=== PATIENT | female | born 1990 | race Caucasian/White ===

== ENCOUNTER → 2016-05-26 | Outpatient (CLI) | payer BC ==
--- NOTE | 2016-05-26 16:31 | Diagnostic Imaging Report ---
OB ultrasound. INDICATION: survey. FINDINGS: heart rate is 146 beats per minute. The fetus is in cephalic position. The cervix appears long and closed. The placenta is anterior with no placenta previa. The lateral ventricles appear normal. The stomach appears unremarkable. The cord insertion and four-chamber cardiac view is not well seen. The spine appears unremarkable. The urinary bladder and two umbilical arteries are demonstrated. There is no hydronephrosis or cystic mass at the level of the kidneys seen. The amniotic fluid index is 15.2 cm. The growth parameters are all around 27 weeks and 5 days, concordant with the BRETT provided by the referring physician office with current gestational age based on the provided BRETT of 27 weeks and 5 days as well. IMPRESSION: Short-term follow-up is recommended to reevaluate four-chamber view and cord insertion not well seen due to position. Dictated by: Dictated on workstation # [id number]
== END ==
LOC: RAD 09:25
PROVIDERS: ATTEND Obstetrics & Gynecology
DX: Z34.02 Encounter for supervision of normal first pregnancy, second trimester (principal)
CPT/HCPCS: 76805

== ENCOUNTER → 2016-06-08 | Outpatient (CLI) | payer BC ==
--- NOTE | 2016-06-08 13:09 | Diagnostic Imaging Report ---
EXAMINATION: OB ultrasound. INDICATION: Followup four-chamber view and cord insertion. FINDINGS: The four-chamber view is better seen at this time with no significant abnormality. The cord insertion is not evaluated. The heart rate is 134 BPM. IMPRESSION: The four-chamber view appears normal. The cord insertion is still not seen. Dictated by: Dictated on workstation # [id number]
== END ==
LOC: RAD 09:05
PROVIDERS: ATTEND Obstetrics & Gynecology
DX: Z34.03 Encounter for supervision of normal first pregnancy, third trimester (principal)
CPT/HCPCS: 76816

== ENCOUNTER 2016-08-24 19:12 | Inpatient (IN) | payer BC ==
[~2016-08-24] VITALS: Ht 163.8 cm; Wt 104.6 kg
[2016-08-24 19:21] VITALS: BP 122/76
[2016-08-24] MEDS ORDERED: LACTATED RINGERS 1,000 ML IV ONE (19:36)
[2016-08-24] MEDS ORDERED: MISOPROSTOL 100 MCG (CYTOTEC) TAB PO NR (19:45)
[2016-08-24] MEDS ORDERED: MINERAL OIL CONCENTRATE 99.9% 15 ML UDC TOP PRN (19:45)
[2016-08-24 20:09] LABS: BASOPHILS % (AUTO) 0 % (0-10); EOSINOPHILS # (AUTO) 0.1 10^3/uL (0.0-0.3); EOSINOPHILS % (AUTO) 1 % (0-10); LYMPHOCYTES % (AUTO) 22 % (12-44); MEAN CORPUSCULAR HEMOGLOBIN 29 PG (25-34); MEAN CORPUSCULAR HGB CONC 34 G/DL (32-36); MEAN CORPUSCULAR VOLUME 85 FL (80-99); MEAN PLATELET VOLUME 11.5 FL (7.4-10.4); MONOCYTES # (AUTO) 0.8 X 10^3 (0.0-1.0); MONOCYTES % (AUTO) 9 % (0-12); NEUTROPHILS # (AUTO) 6.3 X 10^3 (1.8-7.8); NEUTROPHILS % (AUTO) 68 % (42-75); PLATELET COUNT 204 10^3/uL (130-400); RED BLOOD COUNT 4.02 10^6/uL (4.35-5.85); RED CELL DISTRIBUTION WIDTH 14.2 % (10.0-14.5); WHITE BLOOD COUNT 9.3 10^3/uL (4.3-11.0)
[2016-08-24] MEDS ORDERED: PREN-37 PO (20:40)
[2016-08-24] MEDS: D5 LR IV SOLUTION 1,000 ML IV SCH (20:55)
[2016-08-24 21:59] LABS: BILIRUBIN,URINE NEGATIVE (NEGATIVE); KETONES,URINE 2+ (NEGATIVE); LEUKOCYTE ESTERASE ,URINE NEGATIVE (NEGATIVE); NITRITE,URINE NEGATIVE (NEGATIVE); PH,URINE 6.5 (5-9); PROTEIN,URINE NEGATIVE (NEGATIVE); UROBILINOGEN,URINE NORMAL (NORMAL)
[2016-08-24] MEDS ORDERED: CATHETER FLUSH 10 ML SYR IV SCH (22:00)
[2016-08-24 22:08] LABS: SQUAMOUS EPITHELIAL CELL,UR 0-2 /HPF; WBC,URINE 0-2 /HPF
[2016-08-24] MEDS ORDERED: MISOPROSTOL 100 MCG (CYTOTEC) TAB PO SCH (23:45)
[2016-08-25] VITALS (20 sets, daily range): BP systolic 118–188; BP diastolic 62–114
[2016-08-25] MEDS ORDERED: HYDROmorphone (DILAUDID) 2 MG/ML VIAL IVP ONE ×2 (02:15→06:15)
[2016-08-25] MEDS: D5 LR IV SOLUTION 1,000 ML IV SCH ×2 (04:48→12:11)
[2016-08-25] MEDS ORDERED: ONDANSETRON 4 MG/2 ML (SDV) Z0FRAN IVP PRN (06:15)
[2016-08-25] MEDS ORDERED: SUFENTA 0.6MCG/ML BUPIVA 0.125 100 ML ONE (08:05)
--- NOTE | 2016-08-25 08:19 | History & Physical-OB ---
OB - Chief Complaint & HPI Date/Time Date of Admission: Date of Admission: Aug 24, 2016 at 7:12 pm Time Seen by Provider: 09:00 Chief Complaint/History OB-Reason for Admission/Chief: Induction of Labor Hx : 1 Hx Para: 0 Expected Date of Delivery: Aug 20, 2016 Gestational Age in Weeks: 40 Indication for induction: post dates Admission Nurse Assessment Rev: Yes History of Labs A neg Antibody neg RI RPR NR HBsAg NR HIV NR GC neg GBS neg Allergies and Home Medications Allergies Coded Allergies: No Known Drug Allergies (Unverified , 08/24/16) Home Medications Vit/Iron Fumarate/FA 1 Each Tablet, 1 EACH PO DAILY, (Reported) OB - History Hx of Present Care: Yes Ultrasounds: Normal mid trimester US Obstetrical Complications: None Medical Complications: None Delivery History Adverse Rxn to Tranfusion: No Patient Past Medical History n/a Social History/Family History HIV/AIDS: No Recent Infectious Disease Expo: No Sexually Transmitted Disease: No Alcohol Use: Denies Use Recreational Drug Use: No Immunizations Hepatitis A: No Hepatitis B: No OB - Admission Exam Physical Exam Date Seen by Provider: Aug 24, 2016 Time Seen by Provider: 09:00 Vitals: Vital Signs 08/25/16 03:59 Temp 97.4 Pulse 83 Resp 18 B/P (MAP) 123/70 O2 Delivery Room Air HEENT: NCAT Heart: Rhythm Normal Lungs: Clear Abdomen: Gravid Extremities: Normal Reflexes: Normal Cervical Dilatation: 2cm Effacement: 75% Station: -1 Membranes: Intact Heart Rate: 130's Accelerations: Accelerations Present Decelerations: No Decelerations Short Term Variability: Present Fci Variability: Average (6-25) Contractions on Admission: >10 Minutes Apart Intensity: Mild Collado Scoring Tool (Modified) Dilation (cm): 1-2cm (1) Effacement (%): 51-79% (2) Descent/Station: -1,0 (2) Cervix Consistency: Soft (2) Cervix Position: Anterior (2) Subtract 1 point for: Nulliparity (-1) Collado Score: 8 Labs Laboratory Tests Test 08/24/16 19:05 08/24/16 19:50 Range/Units Urine Color YELLOW Urine Clarity CLEAR Urine pH 6.5 5-9 Urine Specific [place] 1.010 L 1.016-1.022 Urine Protein NEGATIVE NEGATIVE Urine Glucose (UA) NEGATIVE NEGATIVE Urine Ketones 2+ H NEGATIVE Urine Nitrite NEGATIVE NEGATIVE Urine Bilirubin NEGATIVE NEGATIVE Urine Urobilinogen NORMAL NORMAL MG/DL Urine Leukocyte Esterase NEGATIVE NEGATIVE Urine RBC (Auto) 1+ H NEGATIVE Urine RBC RARE /HPF Urine WBC 0-2 /HPF Urine Squamous Epithelial Cells 0-2 /HPF Urine Crystals NONE /LPF Urine Bacteria MODERATE H /HPF Urine Casts NONE /LPF Urine Mucus NEGATIVE /LPF Urine Culture Indicated NO White Blood Count 9.3 4.3-11.0 10^3/uL Red Blood Count 4.02 L 4.35-5.85 10^6/uL Hemoglobin 11.5 11.5-16.0 G/DL Hematocrit 34 L 35-52 % Mean Corpuscular Volume 85 80-99 FL Mean Corpuscular Hemoglobin 29 25-34 PG Mean Corpuscular Hemoglobin Concent 34 32-36 G/DL Red Cell Distribution Width 14.2 10.0-14.5 % Platelet Count 204 130-400 10^3/uL Mean Platelet Volume 11.5 H 7.4-10.4 FL Neutrophils (%) (Auto) 68 42-75 % Lymphocytes (%) (Auto) 22 12-44 % Monocytes (%) (Auto) 9 0-12 % Eosinophils (%) (Auto) 1 0-10 % Basophils (%) (Auto) 0 0-10 % Neutrophils # (Auto) 6.3 1.8-7.8 X 10^3 Lymphocytes # (Auto) 2.0 1.0-4.0 X 10^3 Monocytes # (Auto) 0.8 0.0-1.0 X 10^3 Eosinophils # (Auto) 0.1 0.0-0.3 10^3/uL Basophils # (Auto) 0.0 0.0-0.1 10^3/uL OB - Assessment/Plan/Diagnosis Assessment Assessment: induction of labor Plan Plan: Induction Induction Method: per Misoprostol Protocol Discharge Diagnosis Diagnosis: 25 yo @ 40.5 weeks Postdates GBS neg LUZ MARINACONSUELO Lily DO Aug 25, 2016 8:19 am
[2016-08-25] MEDS ORDERED: OXYTOCIN/NORMAL SALINE 500 ML IV SCH ×2 (08:25→13:21)
[2016-08-25] MEDS ORDERED: BUPIVACAINE 0.25% 30 ML (SENSORCAINE) VIAL ONE (08:47)
[2016-08-25] MEDS ORDERED: fentaNYL INJECTION 100 MCG/2 ML AMP ONE (08:47)
[2016-08-25] MEDS: OXYTOCIN/NORMAL SALINE 500 ML IV SCH ×2 (09:21→13:44)
[2016-08-25] MEDS ORDERED: LACTATED RINGERS 1,000 ML IV ONE (09:52)
[2016-08-25] MEDS ORDERED: NALOXONE 0.4 MG/ML 1 ML (NARCAN) VIAL IV PRN (10:00)
[2016-08-25] MEDS ORDERED: CATHETER FLUSH 10 ML SYR IV PRN (10:00)
[2016-08-25] MEDS ORDERED: diphenhydrAMINE 50 MG/ML INJ (BENADRYL) IV PRN (10:00)
[2016-08-25] MEDS ORDERED: ONDANSETRON 4 MG/2 ML (SDV) Z0FRAN IV PRN (10:00)
[2016-08-25] MEDS ORDERED: EPIDURAL (SUFENTA 0.6MCG/ML BUPIVA 0.125%) 100 ML BAG EPI SCH (10:00)
[2016-08-25] MEDS ORDERED: LIDOCAINE/EPI 1%-1:200,000 (XYLOCAINE) 30 ML VIAL ONE (12:25)
--- NOTE | 2016-08-25 13:27 | OB Labor & Delivery Record ---
L&D History Date of Service Date of Service: Aug 25, 2016 History Expected Date of Delivery: Aug 20, 2016 Gestational Age in Weeks: 40 Hx : 1 Hx Para: 0 Complications Events: Routine care Operative Indications (Cesarea: N/A-Vaginal Delivery Intrapartal Events: None L&D Stage1 Stage One Onset of Labor - Date: Aug 25, 2016 Monitors and Tracing Monitor Mode: External Heart Rate: 115 Monitor Accelerations: Uniform Monitor Decelerations: Prolonged Station: -2 Fci Variability: Average (6-10) Short Term Variability: Present Presentation: Vertex Vital Signs VS - Last 72 Hours, by Label 08/24/16 08/25/16 08/25/16 19:21 00:05 03:59 Temp 99.8 96.7 97.4 Pulse 89 78 83 Resp 18 18 18 B/P (MAP) 122/76 118/69 123/70 O2 Delivery Room Air Room Air Room Air Rupture of Membranes Amniotic Membrane Rupture Time: 0040 Amniotic Fluid Membrane Tests: Nitrazine Positive Induction/Anesthesia Epidural Cath Placement - Time: 09:30 Progress/Notes Patient had a couple of prolonged and late decelerations after epidural placement, which resolved with [id number]. L&D Stage2 Stage Two Stage II Date: Aug 25, 2016 Monitors and Tracing Monitor Mode: External Heart Rate: 115 Monitor Accelerations: None Monitor Decelerations: Variable Network Cabler Variability: Average (6-10) Short Term Variability: Present Position: Right Occiput Anterior Presentation: Vertex Cord Descript/Complications Cord Vessel Description: 3 Vessels Complications nuchal cord x 1 Delivery Type Infant Delivery Method: Spontaneous Vaginal Anterior Shoulder: Right Episiotomy/Perineal Laceration Laceraction(s)/Extensions: Yes Episiotomy Description: Midline Degree (describe repair) midline episiotomy repaired in normal fashion using 3-0 and 2-0 vicryl suture Condition of Delivery 1 minute Comment: 8 5 minute Comment: 9 Notes Live male weight 6lbs 9 oz. Condition of Condition of Infant: Living Exam: No Observed Abnormalities Resuscitation Resuscitation: N/A - Spontaneous Resp L&D Stage3 Stage Three Stage III Date: Aug 25, 2016 Pictocin Pitocin Administration Comment: 2 30 mu bags wide open at delivery of placenta Placenta Delivery Placenta Delivery: Spontaneous Delivery Summary Summary blood loss >1000ml: No Vaginal blood loss >500ml: No 400 Attending at delivery: Consuelo Raza DO Condition of Delivery Post Hemorrhage: No Condition of Mother stable Condition of (s) stable CONSUELO RAZA DO Aug 25, 2016 1:26 pm
[2016-08-25] MEDS ORDERED: TETANUS,DIPTH,PERTUSS P/F (BOOSTRIX) 0.5 ML VIAL IM ONE (13:30)
[2016-08-25] MEDS ORDERED: WITCH HAZEL(TUCKS) 40 EA JAR TOP PRN (13:30)
[2016-08-25] MEDS ORDERED: APAP 300 MG/CODEINE 30 MG (TYLENOL #3) TAB PO PRN (13:30)
[2016-08-25] MEDS ORDERED: MEASLES,MUMPS,RUBELLA 1 EA INJ SQ ONE (13:30)
[2016-08-25] MEDS ORDERED: BENZOCAINE/MENTHOL (DERMOPLAST) 56 ML CAN TP PRN (13:30)
[2016-08-25] MEDS: IBUPROFEN 600 MG (MOTRIN) TAB PO SCH ×2 (14:59→21:50)
[2016-08-25] MEDS: DIBUCAINE (NUPERCAINAL) 1% OINT 30 GM TOP PRN (14:59)
[2016-08-25] MEDS: DOCUSATE SODIUM 100 MG (COLACE) CAP PO SCH (21:50)
[2016-08-26 01:15] VITALS: BP 115/77
[2016-08-26 05:09] LABS: BASOPHILS % (AUTO) 0 % (0-10); EOSINOPHILS # (AUTO) 0.1 10^3/uL (0.0-0.3); EOSINOPHILS % (AUTO) 1 % (0-10); LYMPHOCYTES # (AUTO) 2.1 X 10^3 (1.0-4.0); LYMPHOCYTES % (AUTO) 23 % (12-44); MEAN CORPUSCULAR HEMOGLOBIN 29 PG (25-34); MEAN CORPUSCULAR HGB CONC 33 G/DL (32-36); MEAN CORPUSCULAR VOLUME 87 FL (80-99); MEAN PLATELET VOLUME 10.7 FL (7.4-10.4); MONOCYTES # (AUTO) 0.6 X 10^3 (0.0-1.0); MONOCYTES % (AUTO) 7 % (0-12); NEUTROPHILS # (AUTO) 6.4 X 10^3 (1.8-7.8); NEUTROPHILS % (AUTO) 70 % (42-75); PLATELET COUNT 142 10^3/uL (130-400); RED BLOOD COUNT 3.33 10^6/uL (4.35-5.85); RED CELL DISTRIBUTION WIDTH 14.3 % (10.0-14.5); WHITE BLOOD COUNT 9.2 10^3/uL (4.3-11.0)
[2016-08-26] MEDS: IBUPROFEN 600 MG (MOTRIN) TAB PO SCH ×3 (05:10→18:09)
[2016-08-26 05:13] VITALS: BP 125/76
--- NOTE | 2016-08-26 08:05 | Postpartum Progress Note ---
Note Note Day # 1 Subjective: Patient is without complaints. Ambulating, voiding. Tolerating a regular diet without nausea or vomiting. Normal lochia. Pain is well controlled with oral pain medications. Breast feeding with some difficulty, pumping as well. Objective: VS - Last 72 Hours, by Label 08/24/16 08/25/16 08/25/16 08/25/16 19:21 00:05 03:59 08:30 Temp 99.8 96.7 97.4 97.3 Pulse 89 78 83 Resp 18 18 18 B/P (MAP) 122/76 118/69 123/70 O2 Delivery Room Air Room Air Room Air 08/25/16 08/25/16 08/25/16 08/25/16 09:00 09:30 10:00 10:30 Pulse 73 87 75 75 Resp 18 18 18 18 B/P (MAP) 129/92 120/68 123/69 123/69 O2 Delivery Room Air Non Rebreather Non Rebreather Non Rebreather O2 Flow Rate 15.00 15.00 15.00 08/25/16 08/25/16 08/25/16 08/25/16 11:00 11:30 12:00 12:15 Temp 98.3 Pulse 85 82 105 94 Resp 18 18 20 20 B/P (MAP) 144/79 152/89 168/100 134/91 O2 Delivery Non Rebreather Non Rebreather Room Air Room Air O2 Flow Rate 15.00 15.00 08/25/16 08/25/16 08/25/16 08/25/16 12:30 12:45 13:00 13:30 Temp 98.8 Pulse 112 139 107 106 Resp 20 20 20 18 B/P (MAP) 134/91 188/114 140/62 137/75 O2 Delivery Non Rebreather Non Rebreather Non Rebreather Non Rebreather O2 Flow Rate 15.00 15.00 15.00 15.00 08/25/16 08/25/16 08/25/16 08/25/16 13:30 13:46 14:00 14:15 Pulse 106 101 100 93 Resp 18 18 18 18 B/P (MAP) 137/75 146/70 136/71 138/76 O2 Delivery Room Air Room Air Room Air Room Air 08/25/16 08/25/16 08/25/16 08/26/16 14:46 15:01 21:50 01:15 Temp 97.7 98.6 Pulse 106 87 82 85 Resp 18 18 18 18 B/P (MAP) 155/80 147/67 143/77 115/77 Pulse Ox 99 98 O2 Delivery Room Air Room Air Room Air Room Air 08/26/16 05:13 Temp 97.6 Pulse 89 Resp 18 B/P (MAP) 125/76 Pulse Ox 98 O2 Delivery Room Air Physical Exam: General - Alert and oriented, no apparent distress Abdomen - Soft, appropriately tender to palpation, non-distended, fundus firm at umbilicus Extremities - 1+ pitting edema bilat LE, negative Luigi's bilaterally Laboratory Tests Test 08/26/16 04:59 Range/Units White Blood Count 9.2 4.3-11.0 10^3/uL Red Blood Count 3.33 L 4.35-5.85 10^6/uL Hemoglobin 9.5 L 11.5-16.0 G/DL Hematocrit 29 L 35-52 % Mean Corpuscular Volume 87 80-99 FL Mean Corpuscular Hemoglobin 29 25-34 PG Mean Corpuscular Hemoglobin Concent 33 32-36 G/DL Red Cell Distribution Width 14.3 10.0-14.5 % Platelet Count 142 130-400 10^3/uL Mean Platelet Volume 10.7 H 7.4-10.4 FL Neutrophils (%) (Auto) 70 42-75 % Lymphocytes (%) (Auto) 23 12-44 % Monocytes (%) (Auto) 7 0-12 % Eosinophils (%) (Auto) 1 0-10 % Basophils (%) (Auto) 0 0-10 % Neutrophils # (Auto) 6.4 1.8-7.8 X 10^3 Lymphocytes # (Auto) 2.1 1.0-4.0 X 10^3 Monocytes # (Auto) 0.6 0.0-1.0 X 10^3 Eosinophils # (Auto) 0.1 0.0-0.3 10^3/uL Basophils # (Auto) 0.0 0.0-0.1 10^3/uL Assessment: 25 y/o post- day # 1, status post spontaneous vaginal delivery. Recovering well, hemodynamically stable Acute blood loss anemia Hgb 9.5 Mild thrombocytopenia (142K) Plan: Routine care. BPs elevated around time of delivery, no si/sx pre-eclampsia, normalized since - continue to observe. Encourage breast feeding. Encourage ambulation. Ferrous sulfate supplementation. Plan for discharge tomorrow. Vitals - Labs Vital Signs - I&O Vital Signs Date Time Temp Pulse Resp B/P (MAP) Pulse Ox O2 Delivery O2 Flow Rate FiO2 08/26/16 05:13 97.6 89 18 125/76 98 Room Air 08/26/16 01:15 98.6 85 18 115/77 98 Room Air 08/25/16 21:50 97.7 82 18 143/77 99 Room Air 08/25/16 15:01 87 18 147/67 Room Air 08/25/16 14:46 106 18 155/80 Room Air 08/25/16 14:15 93 18 138/76 Room Air 08/25/16 14:00 100 18 136/71 Room Air 08/25/16 13:46 101 18 146/70 Room Air 08/25/16 13:30 106 18 137/75 Room Air 08/25/16 13:30 106 18 137/75 Non Rebreather 15.00 08/25/16 13:00 107 20 140/62 Non Rebreather 15.00 08/25/16 12:45 139 20 188/114 Non Rebreather 15.00 08/25/16 12:30 98.8 112 20 134/91 Non Rebreather 15.00 08/25/16 12:15 94 20 134/91 Room Air 08/25/16 12:00 105 20 168/100 Room Air 08/25/16 11:30 82 18 152/89 Non Rebreather 15.00 08/25/16 11:00 98.3 85 18 144/79 Non Rebreather 15.00 08/25/16 10:30 75 18 123/69 Non Rebreather 15.00 08/25/16 10:00 75 18 123/69 Non Rebreather 15.00 08/25/16 09:30 87 18 120/68 Non Rebreather 15.00 08/25/16 09:00 73 18 129/92 Room Air 08/25/16 08:30 97.3 I & O 08/26/16 07:00 Intake Total 3175 ml Balance 3175 ml Labs Laboratory Tests 08/26/16 04:59: White Blood Count 9.2, Red Blood Count 3.33L, Hemoglobin 9.5L, Hematocrit 29L, Mean Corpuscular Volume 87, Mean Corpuscular Hemoglobin 29, Mean Corpuscular Hemoglobin Concent 33, Red Cell Distribution Width 14.3, Platelet Count 142, Mean Platelet Volume 10.7H, Neutrophils (%) (Auto) 70, Lymphocytes (%) (Auto) 23 , Monocytes (%) (Auto) 7, Eosinophils (%) (Auto) 1, Basophils (%) (Auto) 0, Neutrophils # (Auto) 6.4, Lymphocytes # (Auto) 2.1, Monocytes # (Auto) 0.6, Eosinophils # (Auto) 0.1, Basophils # (Auto) 0.0 KEON MORA MD Aug 26, 2016 08:05
--- NOTE | 2016-08-26 08:33 | Anesthesia-Regional Post-Op ---
Regional Patient Condition Mental Status: Alert, Oriented x3 Circulation: Same as Pre-Op Headache: Absent Sensation: Full Recovery Motor Block: Absent Post Op Complications Complications None Follow Up Care/Instructions Patient Instructions None needed. Anesthesia/Patient Condition Patient is doing well, no complaints, stable vital signs, no apparent adverse anesthesia problems. No complications reported per nursing. D/C home per [facility] [place] Criteria: GRICELDA John DO Aug 26, 2016 08:33
[2016-08-26] MEDS: PRENATAL VITAMIN 1 EA TAB PO SCH (09:36)
[2016-08-26] MEDS: FERROUS SULF 325 MG (IRON) TAB PO SCH (09:36)
[2016-08-26] MEDS: DOCUSATE SODIUM 100 MG (COLACE) CAP PO SCH ×2 (09:36→21:32)
[2016-08-26 12:30] VITALS: BP 119/74
[2016-08-26 18:11] VITALS: BP 132/78
[2016-08-26] MEDS: DIBUCAINE (NUPERCAINAL) 1% OINT 30 GM TOP PRN (21:32)
[2016-08-26] MEDS: CATHETER FLUSH 10 ML SYR IV SCH (22:30)
[2016-08-27] VITALS: BP 128/83
[2016-08-27] MEDS: IBUPROFEN 600 MG (MOTRIN) TAB PO SCH ×3 (00:08→12:08)
[2016-08-27 06:00] VITALS: BP 136/86
--- NOTE | 2016-08-27 07:19 | Discharge Inst-Women's Service ---
Discharge Inst-Women's Serv Depart Medication/Instructions New, Converted or Re-Newed RX: RX on Chart Consults/Follow Up Additional Follow Up: Yes Activity Activity: Activity as Tolerated Driving Instructions: No Driving for 1 Week NO SMOKING: NO SMOKING Nothing Inside Vagina: No Douching, No [place], No Tampons Diet Discharge Diet: No Restrictions Symptoms to Report to : Bleeding Excessive, Pain Increased, Fever Over 101 Degrees F, Vaginal Bleeding Increase, Questions/Concerns For Any Problems or Questions: Contact Your Physician Skin/Wound Care Bathing Instructions: CONSUELO Bar DO Aug 27, 2016 7:19 am
[2016-08-27] MEDS ORDERED: ACET1TAB43 PO (07:22)
[2016-08-27] MEDS ORDERED: DOCU100C37 PO (07:22)
[2016-08-27] MEDS ORDERED: IBUP-1773 PO (07:22)
[2016-08-27] MEDS ORDERED: FERR-74 PO (07:22)
--- NOTE | 2016-08-27 08:47 | Progress Note-Standard ---
Standard Progress Note Progress Notes/Assess & Plan Date Seen by Provider: Aug 27, 2016 Time Seen by Provider: 07:15 Progress/Assessment & Plan Patient doing well, requesting discharge. Lochia min-light. Vital Sign - Last 24 Hours 08/26/16 08/26/16 08/27/16 08/27/16 12:30 18:11 00:00 06:00 Temp 97.6 98.4 97.6 97.9 Pulse 81 96 76 84 Resp 20 18 18 18 B/P (MAP) 119/74 132/78 128/83 136/86 Pulse Ox 98 99 98 O2 Delivery Room Air Room Air Room Air Room Air Diagnosis: PPD 2 NVD Plan: DC home today PP precautions reviewed. CONSUELO RAZA DO Aug 27, 2016 8:47 am
[2016-08-27 09:00] VITALS: BP 132/76
[2016-08-27] MEDS: FERROUS SULF 325 MG (IRON) TAB PO SCH (09:59)
[2016-08-27] MEDS: PRENATAL VITAMIN 1 EA TAB PO SCH (09:59)
[2016-08-27] MEDS: DOCUSATE SODIUM 100 MG (COLACE) CAP PO SCH (09:59)
[2016-08-27 13:10] VITALS: BP 132/76
== END 2016-08-27 13:10 | disposition home or self-care (01) | DRG 774 ==
LOC: LDRP 19:12
PROVIDERS: ADMIT Obstetrics & Gynecology; ATTEND Obstetrics & Gynecology
PROC: 10E0XZZ Delivery of Products of Conception, External Approach (ICD-10-PCS; principal; 2016-08-25)
PROC: 0W8NXZZ Division of Female Perineum, External Approach (ICD-10-PCS; 2016-08-25)
DX: O48.0 Post-term pregnancy (principal); O76 Abnormality in fetal heart rate and rhythm complicating labor and delivery; O72.3 Postpartum coagulation defects; O99.03 Anemia complicating the puerperium; D62 Acute posthemorrhagic anemia; Z3A.40 40 weeks gestation of pregnancy; Z37.0 Single live birth
CPT/HCPCS: 36415; 81000; 83033; 85025; 86850; 86900; 86901

== ENCOUNTER 2019-08-08 09:05 | Outpatient (RCR) | payer OTHER ==
[~2019-08-08] VITALS: Ht 165.1 cm; Wt 79.5 kg
[~2019-08-08 09:05] MED LIST: ACET1TAB43 PO; CETI10TA21 PO; DOCU100C37 PO; FERR325T18 PO; FLUT9.9S NSEACH; IBUP-1773 PO; PREN-37 PO
== END 2019-08-08 15:47 | disposition home or self-care (01) ==
LOC: PREOP 09:05
PROVIDERS: ATTEND Otolaryngology Otolaryngology/Facial Plastic Surgery
DX: Z01.818 Encounter for other preprocedural examination (principal); Z11.59 Encounter for screening for other viral diseases; J32.9 Chronic sinusitis, unspecified
CPT/HCPCS: 87635

== ENCOUNTER 2019-08-11 06:12 | Day surgery (SDC) | payer OTHER ==
[~2019-08-11] VITALS: Ht 165.1 cm; Wt 80.3 kg
[2019-08-11] VITALS (10 sets, daily range): BP systolic 111–133; BP diastolic 68–89
[2019-08-11] MEDS ORDERED: AMPICILLIN/SULBACTAM INJECTION 1.5 GM in NS (IVPB) 100 ML IV ONE (06:15)
[2019-08-11] MEDS ORDERED: HYDROCORTISONE 100 MG/2 ML (Solu-CORTEF) VIAL IV ONE (06:15)
[2019-08-11] MEDS ORDERED: LACTATED RINGERS 1,000 ML IV PRN (06:15)
[2019-08-11 06:49] LABS: BASOPHILS % (AUTO) 0 % (0-10); EOSINOPHILS # (AUTO) 0.2 10^3/uL (0.0-0.3); EOSINOPHILS % (AUTO) 2 % (0-10); HEMATOCRIT 41 % (35-52); HEMOGLOBIN 13.8 G/DL (11.5-16.0); LYMPHOCYTES # (AUTO) 3.8 X 10^3 (1.0-4.0); LYMPHOCYTES % (AUTO) 41 % (12-44); MEAN CORPUSCULAR HEMOGLOBIN 29 PG (25-34); MEAN CORPUSCULAR HGB CONC 34 G/DL (32-36); MEAN CORPUSCULAR VOLUME 85 FL (80-99); MEAN PLATELET VOLUME 9.8 FL (7.4-10.4); MONOCYTES # (AUTO) 0.9 X 10^3 (0.0-1.0); MONOCYTES % (AUTO) 10 % (0-12); NEUTROPHILS # (AUTO) 4.4 X 10^3 (1.8-7.8); NEUTROPHILS % (AUTO) 47 % (42-75); PLATELET COUNT 264 10^3/uL (130-400); RED CELL DISTRIBUTION WIDTH 13.6 % (10.0-14.5); WHITE BLOOD COUNT 9.3 10^3/uL (4.3-11.0)
[2019-08-11 07:09] LABS: BUN/CREATININE RATIO 20; CALCIUM 8.8 MG/DL (8.5-10.1); CARBON DIOXIDE 22 MMOL/L (21-32); CHLORIDE 108 MMOL/L (98-107); CREATININE SERUM 0.76 MG/DL (0.60-1.30); GFR ESTIMATED > 60; GLUCOSE 92 MG/DL (70-105); POTASSIUM 3.9 MMOL/L (3.6-5.0); SODIUM 139 MMOL/L (135-145)
--- NOTE | 2019-08-11 07:09 | Progress Note-Pre Operative ---
Pre-Operative Progress Note H&P Reviewed The H&P was reviewed, patient examined and no changes noted. Date Seen by Provider: August 11, 2019 Time Seen by Provider: : Date H&P Reviewed: August 11, 2019 Time H&P Reviewed: : Pre-Operative Diagnosis: Bilat Chronic Sinusitis, Bialt Hyper of Inf Turbs CONSUELO ROMERO MD August 11, 2019 07:09
[2019-08-11] MEDS ORDERED: COCAINE HCL 4% 2 ML SYR ONE (07:10)
[2019-08-11] MEDS ORDERED: LIDOCAINE/EPI 1%-1:100,000 (XYLOCAINE) 20ML ONE (07:10)
[2019-08-11] MEDS ORDERED: PHENYLEPHRINE 0.5% NASAL SPR (NEO-SYNEPHRINE) REG ONE (07:10)
[2019-08-11] MEDS ORDERED: proPOfol 200 MG/20 ML (DIPRIVAN) VIAL IV ONE (07:13)
[2019-08-11] MEDS ORDERED: DEXAMETHASONE 10 MG/ML (DECADRON) 1 ML VIAL ONE (07:13)
[2019-08-11] MEDS ORDERED: MIDAZOLAM 2 MG/2 ML (VERSED) VIAL ONE (07:13)
[2019-08-11] MEDS ORDERED: SEVOFLURANE (ULTANE) 15 ML INHAL SOLN ONE (07:13)
[2019-08-11] MEDS ORDERED: ONDANSETRON 4 MG/2 ML (SDV) Z0FRAN ONE ×2 (07:13→09:12)
[2019-08-11] MEDS ORDERED: fentaNYL INJECTION 100 MCG/2 ML AMP ONE (07:13)
[2019-08-11] MEDS ORDERED: LIDOCAINE PF 2% 5 ML (XYLOCAINE) VIAL ONE (07:13)
[2019-08-11] MEDS ORDERED: BSS 15 ML ONE (07:18)
[2019-08-11] MEDS ORDERED: morphine INJ 10 MG/ML 1ML (SYR OR VIAL) ONE (08:33)
--- OUTSIDE RECORDS SUMMARY | 2019-08-11 08:41 | XMS REPORT ---
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 [employer] [facility] [employer] Address [address] [address] Care Team Providers Care Aluminum Siding Installer Name Role Phone FENECH DO, CONSUELO S Unavailable Unavailable FENECH DO, CONSUELO S Unavailable Unavailable UNLISTED, UNLISTED Unavailable Unavailable UNLISTED, UNLISTED Unavailable Unavailable UNLISTED, UNLISTED Unavailable Unavailable BIRGIT, RACHELLE Unavailable Unavailable GENAO, RACHELLE Unavailable Unavailable GENAO, RACHELLE Unavailable Unavailable CAIO, BRAYAN Unavailable Unavailable CAIO, BRAYAN Unavailable Unavailable CAIO, BRAYAN Unavailable Unavailable NICK, CONSUELO Unavailable Unavailable NICK, CONSUELO Unavailable Unavailable NICK, CONSUELO Unavailable Unavailable FENECH DO, CONSUELO S Unavailable Unavailable FENECH DO, CONSUELO S Unavailable Unavailable NICK MARIE, CONSUELO P Unavailable Unavailable MD Hieu GENAO PCP Unavailable Unavailable Unavailable Unavailable Unavailable Unavailable Unavailable Unavailable Unavailable Unavailable Allergies Normalized Allergy Reported Date of Reaction(s) Care Provider Facility Allergy Type classification allergen Allergy Onset DA (3 Unclassified No Known Drug 08-24-2016 - no information CONSUELO RAZA Not Available sources.) Allergies , DO (74823) no information Unclassified NO KNOWN DRUG UNKNOWN [facility] (6 sources.) ALLERGIES [facility] ([id number]) Medications Current Medications Medication Ingredient Drug Dose Dates Status Sig Sig Care Class(es) (Normalized) (Original) Provid er no Cetirizine Histamine-1 Active no Cetirizine no information Receptor information Hcl Active name (1 source.) Antagonist 10 ORAL Daily fluticasone fluticasone Corticoster Active no Fluticas one no propionate oid information Propionate name 0.05 Active 1 mg/actuat NASAL Daily metered dose nasal spray (1 source.) Completed/Discontinued Medications Medication Ingredient Drug Dose Dates Status Sig Sig Care Class(es) (Normalized) (Original) Provid er acetaminoph Acetaminoph Opioid 08-28-19 Complete no Acetamin ophe no en 300 mg / en / Agonist 17 - d information n With nam e codeine Codeine 08-03-19 Codeine phosphate 20 Discontinued 30 mg oral 1-2 ORAL tablet (1 Every 4HRS source.) as needed for Pain-Moderat e 30 August 27, 2016 7:22am August 03, 2019 docusate Docusate no 08-28-19 Complete no Docusate no sodium 100 information 17 - d information Sodium name mg oral 08-03-19 Discontinued capsule (1 20 100 ORAL source.) Twice A Day as needed for Constipation -1ST Line 40 August 27, 2016 7:22August 03, 2019 ferrous ferrous no 08-28-19 Complete no Ferrous no sulfate 325 sulfate information 17 - d information Sulfat e name mg oral 08-03-19 Discontinued tablet (1 20 325 ORAL source.) Daily@0800 60 August 27, 2016 7:August 03, 2019 ibuprofen Ibuprofen Nonsteroida 08-28-19 Complete no Ibuprof en no 600 mg oral l 17 - d information Discontinued name tablet (1 Anti-inflam 08-03-19 600 ORAL source.) matory Drug 20 Every 6 Hours as needed for Cramps 80 August 27, 2016 7:August 03, 2019 no no 08-03-19 Complete no no information Vit/Iron information 20 d information Vit/I alina name (1 source.) Fumarate/Fa Fumarate/Fa Discontinued 1 ORAL Daily August 03, 2019 Problems Active Problems Problem Normalized Date Last Normalized Normalized Provider Fa cility Classification Problem(s) Recorded Problem Problem Sta tus Duration Residual 40 weeks 08-01-2019 - Episodic Active CONSUELO BENJIECH [facility] Via codes; gestation of , DO [place] unclassified Hospital - (1 source.) [facility] ([address]) Other Abnormality in 08-01-2019 - Episodic Active CONSUELO F ENECH [facility] Via complications heart , DO [place] of ; rate and Hospital - puerperium rhythm [facility] affecting complicating (86297) management of labor and mother (4 delivery sources.) Acute Acute 08-01-2019 - Episodic Active CONSUELO FENECH [facility] Via posthemorrhagi posthemorrhagi , DO [place] c anemia (4 c anemia Hospital - sources.) [facility] (7[address]99) Other Anemia 08-01-2019 - Chronic Active CONSUELO FENECH [facility] Via complications complicating , DO [place] of ; the [facility]perium [facility] ([address]) management of mother (4 sources.) Other upper Chronic 08-09-2019 - Chronic Active CONSUELO Otero [facility] Via respiratory sinusitis, , MD Fried infections (2 unspecified Hospital - sources.) Translations: [facility] [ Chronic (24623) sinusitis] Immunizations Encounter for 08-09-2019 - Episodic Active ADRIEN ROMERO [facility] Via and screening screening for , MD [place] for infectious other viral Hospital - disease (1 diseases [facility] source.) (23152) Other Encounter for 08-01-2019 - Episodic Active CONSUELO DUCKWORTH [facility] Via and supervision of , DO Fried delivery normal first Hospital - including , [facility] normal (12 third (67621) sources.) trimester Translations: [ SINGLE LIVE , ENCNTR FOR SUPRVSN OF NORMAL FIRST PREG,] Other upper Hypertrophy of Episodic Active MD RACHELLE booth Via respiratory nasal GENAO [address] [place] disease (1 turbinates (Work Phone: Hospital source.) (230[address]) ) Other skin Ingrowing nail Episodic Active RACHELLE GENAO H ospital disorders (1 District [facility] of source.) [facility] (97881) Other skin Ingrowing nail Episodic Active RACHELLE GENAO H ospital disorders (1 District [facility] of source.) [facility] (94114) Prolonged Post-term 08-01-2019 - Episodic Active CONSUELO BENJIEC H [facility] Via (4 , DO [place] sources.) [facility] (64358) Other 08-01-2019 - Episodic Active CONSUELO FENEC H [facility] Via complications coagulation , DO [place] of ; defects [facility] ([address]) management of mother (4 sources.) Other upper Streptococcal Episodic Active BRAYAN KEARNEY Ho spital respiratory sore throat [facility] of infections (2 [place] sources.) [facility] (03462) Bacterial Streptococcus Episodic Active BRAYAN KEARNEY Hosp ital infection; pneumoniae as District [facility] of unspecified the cause of [place] site (2 diseases [facility] (63591) sources.) classified elsewhere Inflammation; Unspecified Episodic Active RACHELLE GENAO H ospital infection of acute District [facility] of eye (except conjunctivitis [place] that caused by , bilateral [facility] (85063) tuberculosis Translations: or sexually [ ACUTE transmitteddis CONJUNCTIVITIS ease) (4 , UNSPECIFIED sources.) ] Past or Other Problems Problem Normalized Date Last Normalized Normalized Provider Fa cility Classification Problem(s) Recorded Problem Problem Sta tus Duration Residual 40 weeks no information no information CONSUELO RAZA Not Available codes; gestation of , DO (71709) unclassified (3 sources.) Procedures Procedure Normalized Procedure Procedure Result Performer Facility Date 08-25-2016 DELIVERY OF PRODUCTS no information no name [facility] ([address]852) DELIVERY OF PRODUCTS no information no name Not Avail able (92279) OF CONCEPTION, [facility] 08-25-2016 DIVISION OF FEMALE no information no name [facility] PERINEUM, EXTERNAL [facility] (46919) DIVISION OF FEMALE no information no name Not Availab le (26892) PERINEUM, EXTERNAL AP Immunizations Normalized Immunization Date Notes Care Provider Facili ty Immunization NEGATED: Highlighted 08-27-2016 no information MD RACHELLE BRUMFIELD NS [place] Via row has not [phone] (Work Phone: [facility] occurred! ) (55748) tetanus toxoid, reduced diphtheria toxoid, and acellular pertussis vaccine, adsorbed Results Test Name Value Interpretation Reference Range Date Time Fa cility (Normalized) (Normalized) (Medline Reference) laboratory on 2019-08-11 Anion gap 9 mmol/L (NEG) 3 - 11 mmol/L 08-11-2019 PENDING LOCATION [Moles/Vol] 02:35-0400 [facility] (35180) Basophils (Bld) 0.0 10*3/uL (NEG) 0 - 0.3 10*3/uL 08-11-2019 PENDING LOCATION [#/Vol] 02:35-0400 [facility] (70411) Basophils/100 0 % (NEG) 0.5 - 1 % 08-11-2019 PENDING LOCATION WBC (Bld) 02:35-0400 [facility] (27854) Calcium 8.8 mg/dL (NEG) 8.5 - 10.2 mg/dL 08-11-2019 PENDI NG LOCATION [Mass/Vol] 02:35-0400 [facility] (17763) Chloride 108 mmol/L (H) 95 - 106 mmol/L 08-11-2019 PENDI LOCATION [Moles/Vol] 02:35-0400 [facility] (84482) CO2 [Moles/Vol] 22 mmol/L (NEG) 23 - 29 mmol/L 08-11-2019 P ENDING LOCATION 02:35-0400 [facility] (24909) Creatinine 0.76 mg/dL (NEG) 08-11-2019 PENDING LOCATI ON [Mass/Vol] 02:35-0400 [facility] (95137) Creatinine and > (no code) 08-11-2019 PENDING LOC ATION Glomerular 02:35-0400 [facility] (93183) filtration rate.predicted panel - Serum, Plasma or Blood Eosinophils 0.2 10*3/uL (NEG) 0.05 - 0.5 08-11-2019 PENDING LOCATION (Bld) [#/Vol] 10*3/uL 02:35-0400 [facility] (62264) Eosinophils/100 2 % (NEG) 1 - 4 % 08-11-2019 [facility] LOCATION WBC (Bld) 02:35-0400 [facility] (39144) Erythrocyte 13.6 % (NEG) 11.6 - 14.6 % 08-11-2019 [facility] LOCATION distribution 02:35-0400 [facility] (44182) width (RBC) [Ratio] Glucose 92 mg/dL (NEG) 60 - 125 mg/dL 08-11-2019 PENDING LOCATION [Mass/Vol] 02:35-0400 [facility] (42092) Hematocrit (Bld) 41 % (NEG) 36.1 - 50.3 % 08-11-2019 P ENDING LOCATION [Volume 02:35-0400 [facility] (45606) fraction] Hemoglobin (Bld) 13.8 g/dL (NEG) 12.1 - 17.2 g/dL 08-11-2019 PENDING LOCATION [Mass/Vol] 02:35-0400 [facility] (28774) Lymphocytes 3.8 10*3/uL (NEG) 0.9 - 2.9 08-11-2019 PENDING LOCATION (Bld) [#/Vol] 10*3/uL 02:35-0400 [facility] (64784) Lymphocytes/100 41 % (NEG) 20 - 40 % 08-11-2019 [facility] LOCATION WBC (Bld) 02:35-0400 [facility] (71625) MCH (RBC) 29 pg (NEG) 27 - 31 pg 08-11-2019 PENDING LOC ATION [Entitic mass] 02:35-0400 [facility] (29230) MCHC (RBC) 34 g/dL (NEG) 32 - 36 g/dL 08-11-2019 PENDING LOCATION [Mass/Vol] 02:35-0400 [facility] (34946) MCV (RBC) 85 (NEG) 08-11-2019 PENDING LOCATI ON [Entitic vol] 02:35-0400 [facility] (15682) Monocytes (Bld) 0.9 10*3/uL (NEG) 0.3 - 0.9 08-11-2019 PEND ING LOCATION [#/Vol] 10*3/uL 02:35-0400 [facility] (98144) Monocytes/100 10 % (NEG) 2 - 8 % 08-11-2019 PENDING LOCATION WBC (Bld) 02:35-0400 [facility] (66093) Neutrophils 4.4 10*3/uL (NEG) 1.7 - 7 10*3/uL 08-11-2019 [facility] ND[facility] LOCATION (Bld) [#/Vol] 02:35-0400 [facility] (10129) Neutrophils/100 47 % (NEG) 40 - 60 % 08-11-2019 PENDIN G LOCATION WBC (Bld) 02:35-0400 [facility] (25049) Platelet mean 9.8 (NEG) 08-11-2019 PENDING LOCA TION volume (Bld) 02:35-0400 [facility] (04607) [Entitic vol] Platelets (Bld) 264 10*3/uL (NEG) 150 - 450 08-11-2019 PEND ING LOCATION [#/Vol] 10*3/uL 02:35-0400 [facility] (55227) Potassium 3.9 mmol/L (NEG) 3.7 - 5.2 mmol/L 08-11-2019 PEND ING LOCATION [Moles/Vol] 02:35-0400 [facility] (06334) RBC (Bld) 4.83 10*6/uL (NEG) 4.2 - 6.1 08-11-2019 PENDING L OCATION [#/Vol] 10*6/uL 02:35-0400 [facility] (64823) Sodium 139 mmol/L (NEG) 135 - 145 mmol/L 08-11-2019 PEND ING LOCATION [Moles/Vol] 02:35-0400 [facility] (86066) Urea nitrogen 15 mg/dL (NEG) 7 - 20 mg/dL 08-11-2019 PENDI NG LOCATION [Mass/Vol] 02:35-0400 [facility] (09068) Urea 20 mg/mg (no code) 6 - 22 mg/mg 08-11-2019 PENDING L OCATION nitrogen/Creatin 02:35-0400 [facility] (15462) ine [Mass ratio] WBC (Bld) 9.3 10*3/uL (NEG) 3.5 - 10.5 08-11-2019 PENDING L OCATION [#/Vol] 10*3/uL 02:35-0400 [facility] (32698) laboratory on 2019-08-08 Coronavirus Ab Negative (no code) 08-08-2019 PENDING LOC ATION Qn (S) 09:11-0400 [facility] (15967) Vital Signs The data below is from unstructured sourcesNo vital signs result information available. Interventions No Information Plan of Treatment Normalized Care Care Detail Care Activity Date Care Provider F acility Activity Coronavirus Ab Qn no information no information MD RACHELLE LOPEZ [place] Via (S) [phone] (Work Phone: [facility] ) ([phone]) Patient referral no information no information MD RACHELLE MENENDEZ S [place] [facility] [phone] (Work Phone: [facility] ) (94492) Goals Patient Goal Desired Goal no information no information Social History Normalized Code Original Code Date Value Tobacco smoking status Tobacco smoking status no information Never smoked tobacco NHIS NHIS (finding) no information no information 08-03-2019 Rarely Uses no information no information 08-03-2019 No no information no information 08-03-2019 Never a Smoker Sex Assigned At Sex Assigned At no information F emale Functional Status The data below is from unstructured sourcesNo Functional Status information available Mental Status The data below is from unstructured sourcesNo Mental Status Information Available Encounters Encounter Normalized Encounter Encounter Diagnosis Care Provi shelia Organization Date Type 08-08-2019 Discharged Recurring no information (no phone) As [facility]ension [facility] (no phone) 08-08-2019 08-24-2016 Evaluation and no information no name no organ ization name - management of 08-27-2016 inpatient 08-24-2016 Evaluation and no information CONSUELO RAZA DO [facility] Via [place] - management of (no phone) [facility] 08-27-2016 inpatient (no phone) 12-18-2017 Patient encounter no information no name no or ganization name - 12-19-2017 08-11-2019 Patient encounter no information CONSUELO ROMERO MD (no [facility] [place] procedure phone) [facility] (no phone) 08-08-2019 Patient encounter no information CONSUELO ROMERO MD (no [facility] Via [place] - procedure phone) [facility] 08-08-2019 (no phone) 08-03-2019 Patient encounter no information CONSUELO ROMERO MD (no [facility] Via [place] procedure phone) [facility] (no phone) 06-18-2019 Patient encounter no information CONSUELO ROMERO (no [facility] - procedure phone) [facility] (no 06-19-2019 phone) 12-10-2018 Patient encounter no information no name no or ganization name - procedure 12-11-2018 10-21-2018 Patient encounter no information no name no or ganization name - procedure 10-22-2018 07-14-2018 Patient encounter no information no name no or ganization name - procedure 07-15-2018 06-10-2017 Patient encounter no information no name no or ganization name - procedure 06-11-2017 01-04-2017 Patient encounter no information no name no or ganization name - procedure 01-05-2017 08-24-2016 Patient encounter no information no name no or ganization name - procedure 08-27-2016 06-08-2016 Patient encounter no information no name no or ganization name procedure 06-08-2016 Patient encounter no information CONSUELO Marrufo [facility] Via [place] procedure (no phone) [facility] (no phone) 05-26-2016 Patient encounter no information no name no or ganization name procedure 05-26-2016 Patient encounter no information CONSUELO Marrufo [facility] Via [place] procedure (no phone) [facility] (no phone) no information Encounter for other no name (no phone) preprocedural examination Medical Equipment The data below is from unstructured sourcesNo Medical Equipment Information available Payers Normalized Payer Value Private Health Insurance no information [employer] [facility] no information Evaluation note Note Type Note Facility Evaluation No Assessments Information Available A scension note Via [facility] ([id number]) Clinical Note Note Type Note Facility Note NAME: HUONG ZHAO ~MED REC#: [id number] ~ PENDING ~PHYSICIAN: CONSUELO ROMERO MD ~Pre-Ope rative Progress Note ~H P Reviewed ~The H LOCATION P was reviewed, patient examined and no changes noted. ~Date Seen by Provider: [facility] August 11, 2019 ~Time Seen by Provider: 06:30 ~Date H P Reviewed: August 11, 2019 (40578) ~Time H P Reviewed: 06:30 ~Pre-Operativ e Diagnosis: Bilat Chronic Sinusitis, Bialt Hyper of Inf Turbs ~ ~ ~ ~Elizabeth ROMERO MD August 11, 2019 07:09 ~ ~ ~<Created by CONSUELO ROMERO MD> ~<Elec tronically signed by CONSUELO ROMERO MD> 08/11/19 0709 ~ ~ Advance Directives Advance Directive Response Recorded Date/Time Advance Directives No Ma y 2019 10:21am Health Care Power of Crop Quantitative Geneticist No August 03, 2019 10:21am Organ Donor Yes July 10:21am Resuscitation Status Full Code August 03, 2019 10:21am Additional Source Comments This clinical document has been generated using [employer] software that has been certified by the Office of the National Coordinator for Health Information Technology (ONC 15.99.04.3023.Diam.31.00.0.251142) and the National Committee for General Service Technician (NCQA, as an eMeasure certified technology). FOR RECORDS PERTAINING TO PATIENTS WHO ARE OR HAVE BEEN ENROLLED IN A CHEMICAL D EPENDENCY/SUBSTANCE ABUSE PROGRAM, SOME INFORMATION MAY BE OMITTED. This clinica l summary was aggregated from multiple sources. Caution should be exercised in using it in the provision of clinical care. This summary normalizes information from multiple sources, and as a consequence, information in this document may ma terially change the coding, format and clinical context of patient data. In toño tion, data may be omitted in some cases. CLINICAL DECISIONS SHOULD BE BASED ON T HE PRIMARY CLINICAL RECORDS. [employer] provides no warranty or guara ntee of the accuracy or completeness of information in this document.The followi ng information is based on time limited clinical information
--- OUTSIDE RECORDS SUMMARY | 2019-08-11 08:41 | XMS REPORT | Continuity of Care Document ---
Author Organization Unknown Address Unknown Phone Unavailable Allergies Active Description Code Type Severity Reaction Onset Reported/Identified Relationship to Patient Clinical Status Yes NO KNOWN DRUG ALLERGIES UNKNOWN NO KNOWN DRUG ALLERG Yes NO KNOWN DRUG ALLERGIES UNKNOWN UNKNOWN Yes No Known Drug Allergies [id number] Drug Allergy Unknown N/A 08/24/2016 Medications There is no data. Problems Date Dx Coded Attending Type Code Diagnosis Diagnosed By 05/26/2016 TITO RAZA DO, Ot Z34.02 ENCNTR FOR SUPRVSN OF NORMAL FIRST PREG, 05/27/2016 TITO RAZA DO, Ot Z34.02 ENCNTR FOR SUPRVSN OF NORMAL FIRST PREG, 05/27/2016 TITO RAZA DO Ot Z34.02 ENCNTR FOR SUPRVSN OF NORMAL FIRST PREG, 06/03/2016 TITO RAZA DO Ot Z34.02 ENCNTR FOR SUPRVSN OF NORMAL FIRST PREG, 06/08/2016 TITO RAZA DO Ot Z34.03 ENCNTR FOR SUPRVSN OF NORMAL FIRST PREG, 06/19/2016 TITO RAZA DO Ot Z34.03 ENCNTR FOR SUPRVSN OF NORMAL FIRST PREG, 08/27/2016 TITO RAZA DO Ot D6 2 ACUTE POSTHEMORRHAGIC ANEMIA 08/27/2016 TITO RAZA DO Ot O48.0 POST-TERM 08/27/2016 TITO RAZA DO Ot O72.3 COAGULATION DEFECTS 08/27/2016 TITO RAZA DO Ot O7 6 ABNLT IN HEART RATE AND RHYTHM COM 08/27/2016 TITO RAZA DO Ot O99.03 ANEMIA COMPLICATING THE PUERPERIUM 08/27/2016 TITO RAZA DO Ot Z37.0 SINGLE LIVE 08/27/2016 TITO RAZA DO Ot Z3A.40 40 WEEKS GESTATION OF 06/10/2017 A 703.0 INGR OWING NAIL 06/10/2017 A L60.0 INGR OWING NAIL 07/14/2018 W 372.00 ACU TE CONJUNCTIVITIS, UNSPECIFIED 07/14/2018 W H10.33 UNS PECIFIED ACUTE CONJUNCTIVITIS, BILATERAL 10/21/2018 W 034.0 STRE PTOCOCCAL SORE THROAT 10/21/2018 W B95.3 STRE PTOCOCCUS PNEUMONIAE THE CAUSE OF DISEASES CLASSIFIED ELSEWHERE 08/01/2019 TITO RAZA DO, Ot Z34.02 ENCNTR FOR SUPRVSN OF NORMAL FIRST PREG, 08/01/2019 TITO RAZA DO Ot Z34.03 ENCNTR FOR SUPRVSN OF NORMAL FIRST PREG, Procedures Code Description Performed By Per formed On 3L1QPKD DI VISION OF FEMALE PERINEUM, EXTERNAL AP 08/25/2016 [id number] DE LIVERY OF PRODUCTS OF CONCEPTION, EXTE 08/25/2016 Results Test Result Range Complete blood count (CBC) with automate d white blood cell (WBC) differential - 08/26/16 04:59 Blood leukocytes automated count (number/volume) 9.2 10*3/uL 4.3-11.0 Blood erythrocytes automated count (number/volume) 3.33 10*6/uL 4.35-5.85 Venous blood hemoglobin measurement (mass/volume) 9.5 g/dL 11.5-16.0 Blood hematocrit (volume fraction) 29 % 35-52 Automated erythrocyte mean corpuscular volume 87 [ foz_us] 80-99 Automated erythrocyte mean corpuscular h emoglobin (mass per erythrocyte) 29 pg 25-34 Automated erythrocyte mean corpuscular h emoglobin concentration measurement (mass/volume) 33 g/dL 32-36 Automated erythrocyte distribution width ratio 14. 3 % 10.0- 14.5 Automated blood platelet count (count/volume) 142 10*3/uL 130-400 Automated blood platelet mean volume measurement 10.7 [foz_us] 7.4-10.4 Automated blood neutrophils/100 leukocytes 70 % 42-75 Automated blood lymphocytes/100 leukocytes 23 % 12-44 Blood monocytes/100 leukocytes 7 % 0-12 Automated blood eosinophils/100 leukocytes 1 % 0-10 Automated blood basophils/100 leukocytes 0 % 0-10 Blood neutrophils automated count (number/volume) 6.4 10*3 1.8-7.8 Blood lymphocytes automated count (number/volume) 2.1 10*3 1.0-4.0 Blood monocytes automated count (number/volume) 0. 6 10*3 0.0-1.0 Automated eosinophil count 0.1 10*3/uL 0 .0-0.3 Automated blood basophil count (count/volume) 0.0 10*3/uL 0.0-0.1 RH IMMUNE GLOBULIN [facility] - 08/26/16 04: 59 RH IMMUNE GLOBULIN [facility] JUAN JOSE MARIE TRFSD 08/26/16 1336 NRG cell screen - 08/26/16 04:59 SCREEN LOT NUMBER [id number] NRG Transfusion band number [id number] NRG [id number] 300ug NRG Erythrocytes./1000 erythrocytes 09/04/16 NRG cell screen 09/04/18 NRG cell screen NEGATIVE NEGATIVE Lot number [id number] NR Coronavirus SARS-CoV-2 SO 2018 0 13:11 Coronavirus Ab [Units/volume] in Serum Negative Negative Encounters ACCT No. Visit Date/Time Discharge Status Pt. Type Provider Facility Loc./Unit Complaint [id number] 06/19/2019 00:00:00 06/19/2019 23:59 :00 DIS Outpatient Tito Olivo [id number] 12/10/2018 15:43:00 12/10/2018 23:59: 00 DIS Outpatient UNLISTED, UNLISTED [id number] 12/18/2017 13:26:00 12/18/2017 23:59: 00 DIS Outpatient SELF, PHY [id number] 01/04/2017 12:48:00 01/04/2017 23:59: 00 DIS Outpatient SELF, Y [id number] 10/21/2018 13:34:00 Document Registration [id number] 07/14/2018 11:00:00 Document Registration [id number] 06/10/2017 10:50:00 Document Registration [id number] 08/08/2019 09:05:00 020 15:47:00 DIS Outpatient TITO OLIVO MD Via [facility] PREOP TURBINATE HYPERTROPHY, CHRONIC SINUSITIS [id number] 08/24/2016 19:12:00 017 13:10:00 DIS Inpatient TITO RAZA DO Via [facility] LDRP INDUCTION [id number] 06/08/2016 09:05:00 017 23:59:59 CLS Outpatient TITO RAZA DO Via [facility] RAD FOLLOW UP HEART VIEWS [id number] 05/26/2016 09:25:00 017 23:59:59 CLS Outpatient TITO RAZA DO Via [facility] RAD INCOMPLETE VIEWS [id number] 08/11/2019 07:30:00 P DONNA OLIVO MD, TITO Dalal [facility] SDC TURBINATE HYPERTROPHY, CHRON IC SINUSITIS
[2019-08-11] MEDS ORDERED: D5 1/2 NS W/KCL 20 MEQ/L 1,000 ML IV SCH (08:57)
--- NOTE | 2019-08-11 08:57 | Progress Note-Post Operative ---
Post-Operative Progess Note Surgeon (s)/Operating Room Scheduler (s) Surgeon CONSUELO ROMERO MD Operating Room Scheduler n/a Pre-Operative Diagnosis Bilat Chronic Sinusitis, Bialt Hyper of Inf Turbs Post-Operative Diagnosis same Post-Op Procedure Note Date of Procedure: August 11, 2019 Name of Procedure Performed: Bilat ESs, Bilat Red of Inf Turbs Description & Findings Description and Findings: n/a Anesthesia Type get Estimated Blood Loss minimal Packing none. Specimen(s) collected/removed bilat chornic sinus disease and polyps, culture left maxillary sinus CONSUELO ROMERO MD August 11, 2019 08:57
[2019-08-11] MEDS ORDERED: ACETAMINOPHEN 325 MG TABLET PO PRN (09:00)
[2019-08-11] MEDS ORDERED: PROMETHAZINE INJ 25 MG/ML (PHENERGAN) AMP IVP PRN (09:00)
[2019-08-11] MEDS ORDERED: HYDROcodone/APAP 5 MG/325 MG (LORTAB) TAB PO PRN (09:00)
[2019-08-11] MEDS ORDERED: predniSONE 20 MG TAB PO ONE (09:00)
[2019-08-11] MEDS ORDERED: morphine INJ 10 MG/ML 1ML (SYR OR VIAL) IVP ONE (09:15)
[2019-08-11] MEDS ORDERED: ONDANSETRON 4 MG/2 ML (SDV) Z0FRAN IVP PRN (09:15)
--- NOTE | 2019-08-11 09:22 | Anesthesia-General Post-Op ---
General Patient Condition Mental Status/LOC: Same as Preop Cardiovascular: Satisfactory Nausea/Vomiting: Absent Respiratory: Satisfactory Pain: Controlled Complications: Absent Post Op Complications Complications None Follow Up Care/Instructions Patient Instructions None needed. Anesthesia/Patient Condition Patient Condition Patient is doing well, no complaints, stable vital signs, no apparent adverse anesthesia problems. No complications reported per nursing. CHIDI UNDERWOOD CRNA August 11, 2019 09:22
[2019-08-11] MEDS ORDERED: HYDROmorphone 2 MG/ML VIAL (DILAUDID) ONE (09:27)
[2019-08-11] MEDS ORDERED: HYDR-83 PO (10:11)
[2019-08-11] MEDS ORDERED: PRD20T PO (10:11)
[2019-08-11] MEDS ORDERED: AMOX-355 PO (10:11)
== END 2019-08-11 11:15 | disposition home or self-care (01) ==
LOC: SDC 06:12
PROVIDERS: ATTEND Otolaryngology Otolaryngology/Facial Plastic Surgery
DX: J32.9 Chronic sinusitis, unspecified (principal); J34.3 Hypertrophy of nasal turbinates; J33.8 Other polyp of sinus; J30.9 Allergic rhinitis, unspecified; R09.81 Nasal congestion; Z79.899 Other long term (current) drug therapy
CPT/HCPCS: 36415; 80048; 84703; 85025; 87070; 87075; 87081; 87101; 87205

== ENCOUNTER → 2020-06-14 | Outpatient (CLI) | payer OTHER ==
[~2020-06-14] MED LIST changes: +ACHD5005 PO; +AMOX-355 PO; -CETI10TA21 PO; +CETI10TA49 PO; +PRD20T PO
--- NOTE | 2020-06-14 16:48 | Diagnostic Imaging Report ---
INDICATION: anatomic assessment during normal . TECHNIQUE: Multiple real-time grayscale images were obtained over the gravid uterus. COMPARISON: None. FINDINGS: Single viable intrauterine , currently in a breech presentation. There is normal amount of amniotic fluid. Placenta is posterior and without previa. Visualized anatomical structures including the kidneys, bladder, stomach, intracranial structures, four-chamber heart, three-vessel cord and cord insertion site, as well as spine are unremarkable. Biometrical measurements are as follows: Biparietal 4.37 cm, age 19 weeks 2 days. Head circumference 17.34 cm, age 20 weeks 0 days. Abdominal circumference 15.12 cm, age 20 weeks 3 days. Femur length 3.31 cm, age 20 weeks 3 days. Sonographic estimate age: 20 weeks 1 days. Sonographic estimated date of delivery: 10/31/2020. Estimated Weight: 343 gm (+/- 50 gm). LMP percentile: 17%. heart rate: 139 beats per minute. number: 1 of 1. IMPRESSION: 1. Single viable intrauterine , currently in a breech presentation, sonographic estimated age at 20 weeks 1 day for an estimated date of delivery of October 31, 2020. No abnormality is demonstrated at this time. Dictated by: Dictated on workstation # [id number]
== END ==
LOC: RAD 14:49
PROVIDERS: ATTEND Obstetrics & Gynecology
DX: O32.1XX0 Maternal care for breech presentation, not applicable or unspecified (principal); Z3A.20 20 weeks gestation of pregnancy
CPT/HCPCS: 76805

== ENCOUNTER 2020-10-24 18:59 | Inpatient (IN) | payer OTHER ==
[~2020-10-24] VITALS: Ht 165.1 cm; Wt 100.7 kg
[2020-10-24] MEDS ORDERED: D5 LR IV SOLUTION 1,000 ML IV ONE (19:08)
[2020-10-24] MEDS ORDERED: NS IV 1000 ML 1,000 ML ONE (19:08)
[2020-10-24 20:00] VITALS: BP 116/74
[2020-10-24] MEDS ORDERED: NS IV 1000 ML 1,000 ML IV ONE (20:15)
[2020-10-24] MEDS ORDERED: TERBUTALINE INJ 1 MG/ML (BRETHINE) AMP SC PRN (20:15)
[2020-10-24 20:18] LABS: BILIRUBIN,URINE NEGATIVE (NEGATIVE); CLARITY,URINE CLEAR; COLOR,URINE YELLOW; GLUCOSE, URINE (UA) NEGATIVE (NEGATIVE); KETONES,URINE TRACE (NEGATIVE); LEUKOCYTE ESTERASE ,URINE NEGATIVE (NEGATIVE); NITRITE,URINE NEGATIVE (NEGATIVE); PROTEIN,URINE NEGATIVE (NEGATIVE)
[2020-10-24] MEDS: D5 LR IV SOLUTION 1,000 ML IV SCH (20:26)
[2020-10-24 20:27] LABS: BASOPHILS % (AUTO) 0 % (0-10); EOSINOPHILS # (AUTO) 0.2 10^3/uL (0.0-0.3); EOSINOPHILS % (AUTO) 2 % (0-10); HEMATOCRIT 33 % (35-52); HEMOGLOBIN 10.9 g/dL (11.5-16.0); LYMPHOCYTES # (AUTO) 1.8 10^3/uL (1.0-4.0); LYMPHOCYTES % (AUTO) 23 % (12-44); MEAN CORPUSCULAR HEMOGLOBIN 29 pg (25-34); MEAN CORPUSCULAR HGB CONC 33 g/dL (32-36); MEAN CORPUSCULAR VOLUME 88 fL (80-99); MEAN PLATELET VOLUME 10.7 fL (9.0-12.2); MONOCYTES # (AUTO) 0.7 10^3/uL (0.0-1.0); MONOCYTES % (AUTO) 9 % (0-12); NEUTROPHILS # (AUTO) 5.2 10^3/uL (1.8-7.8); NEUTROPHILS % (AUTO) 66 % (42-75); PLATELET COUNT 188 10^3/uL (130-400)
[2020-10-24 20:29] LABS: BACTERIA,URINE FEW /HPF; CALCIUM OXALATE CRYSTALS,UR FEW /LPF; SQUAMOUS EPITHELIAL CELL,UR 0-2 /HPF
[2020-10-25] VITALS (72 sets, daily range): BP systolic 93–162; BP diastolic 49–96
[2020-10-25] MEDS ORDERED: ACETAMINOPHEN 500 MG TAB (TYLENOL) ONE (00:35)
[2020-10-25] MEDS ORDERED: ACETAMINOPHEN 500 MG TAB (TYLENOL) PO ONE (00:45)
[2020-10-25] MEDS: D5 LR IV SOLUTION 1,000 ML IV SCH ×3 (03:59→16:57)
--- NOTE | 2020-10-25 07:56 | History & Physical-OB ---
OB - Chief Complaint & HPI Date/Time Date of Admission: Date of Admission: Oct 24, 2020 at 18:59 Date seen by a Provider: Oct 25, 2020 Time Seen by a Provider: 07:45 Chief Complaint/History OB-Reason for Admission/Chief: Induction of Labor Hx : 2 Hx Para: 1 Expected Date of Delivery: Oct 26, 2020 Gestational Age in Weeks: 39 Gestational Age in Days: 5 Admission Nurse Assessment Rev: Yes History of Labs A neg Antibody neg RI RPR NR HBsAg NR HIV NR GC neg GBS neg Allergies and Home Medications Allergies Coded Allergies: No Known Drug Allergies (Unverified , 08/11/19) Home Medications Amoxicillin/Potassium Clav 1 Each Tablet, 1 EACH PO BID Prescribed by: LIZETT MIKE on 08/11/19 1011 Hydrocodone/Acetaminophen 1 Each Tablet, 1-2 EACH PO Q4H Prescribed by: LIZETT MIKE on 08/11/19 1011 Prednisone 20 Mg Tab, 20 MG PO UD Take 2 tabs(40mg)daily for 3 days, Take 1 tabs(20mg)daily for 3 days, then off Prescribed by: LIZETT MIKE on 08/11/19 1011 Patient Home Medication List Home Medication List Reviewed: Yes OB - History Hx of Present Care: Yes Ultrasounds: Normal mid trimester US Obstetrical Complications: None Medical Complications: None Delivery History Adverse Rxn to Tranfusion: No Patient Past Medical History n/a Social History/Family History 2nd Hand Smoke Exposure: No Immunizations Hepatitis A: Yes Hepatitis B: Yes Date of Influenza Vaccine: Jan 10, 2019 OB - Admission Exam Physical Exam Vitals: Vital Signs 10/25/20 10/25/20 04:00 07:00 Temp 36.5 Pulse 58 Resp 18 B/P (MAP) 117/65 (82) Pulse Ox 100 O2 Delivery Room Air HEENT: NCAT Heart: Rhythm Normal Lungs: Clear Abdomen: Gravid Extremities: Normal Reflexes: Normal Cervical Dilatation: 1cm Effacement: 75% Station: -1 Membranes: Intact Heart Rate: 130's Accelerations: Accelerations Present Decelerations: No Decelerations Short Term Variability: Present Cook Helper Juice Variability: Average (6-25) Contractions on Admission: 6-10 Minutes Apart Intensity: Mild Collado Scoring Tool (Modified) Dilation (cm): 1-2cm (1) Effacement (%): 31-51% (1) Descent/Station: -2 (1) Cervix Consistency: Soft (2) Cervix Position: Anterior (2) Add 1 point for: Each previous vaginal delivery (1) Collado Score: 9 Labs Laboratory Tests Test 10/24/20 19:25 10/24/20 20:00 Range/Units Urine Color YELLOW Urine Clarity CLEAR Urine pH 6.0 5-9 Urine Specific [place] >=1.030 1.016-1.022 Urine Protein NEGATIVE NEGATIVE Urine Glucose (UA) NEGATIVE NEGATIVE Urine Ketones TRACE H NEGATIVE Urine Nitrite NEGATIVE NEGATIVE Urine Bilirubin NEGATIVE NEGATIVE Urine Urobilinogen 0.2 < = 1.0 MG/DL Urine Leukocyte Esterase NEGATIVE NEGATIVE Urine RBC (Auto) NEGATIVE NEGATIVE Urine RBC NONE /HPF Urine WBC NONE /HPF Urine Squamous Epithelial Cells 0-2 /HPF Urine Crystals PRESENT H /LPF Urine Calcium Oxalate Crystals FEW H /LPF Urine Bacteria FEW H /HPF Urine Casts NONE /LPF Urine Mucus SMALL H /LPF Urine Culture Indicated NO White Blood Count 8.0 4.3-11.0 10^3/uL Red Blood Count 3.74 L 3.80-5.11 10^6/uL Hemoglobin 10.9 L 11.5-16.0 g/dL Hematocrit 33 L 35-52 % Mean Corpuscular Volume 88 80-99 fL Mean Corpuscular Hemoglobin 29 25-34 pg Mean Corpuscular Hemoglobin Concent 33 32-36 g/dL Red Cell Distribution Width 14.1 10.0-14.5 % Platelet Count 188 130-400 10^3/uL Mean Platelet Volume 10.7 9.0-12.2 fL Immature Granulocyte % (Auto) 1 % Neutrophils (%) (Auto) 66 42-75 % Lymphocytes (%) (Auto) 23 12-44 % Monocytes (%) (Auto) 9 0-12 % Eosinophils (%) (Auto) 2 0-10 % Basophils (%) (Auto) 0 0-10 % Neutrophils # (Auto) 5.2 1.8-7.8 10^3/uL Lymphocytes # (Auto) 1.8 1.0-4.0 10^3/uL Monocytes # (Auto) 0.7 0.0-1.0 10^3/uL Eosinophils # (Auto) 0.2 0.0-0.3 10^3/uL Basophils # (Auto) 0.0 0.0-0.1 10^3/uL Immature Granulocyte # (Auto) 0.1 0.0-0.1 10^3/uL OB - Assessment/Plan/Diagnosis Assessment Assessment: induction of labor Admission Dx 30 y o @ 39.5 Elective IOL GBS neg Admission Status: Inpatient Order (span 2 midnights) Reason for Inpatient Admission: IOL at 39 weeks Plan Plan: Induction Induction Method: per Misoprostol Protocol CONSUELO RAZA DO Oct 25, 2020 07:56
[2020-10-25] MEDS ORDERED: OXYTOCIN PRE-MIX DRIP 500 ML IV SCH ×2 (08:00→08:15)
[2020-10-25] MEDS: CATHETER FLUSH 10 ML SYR IV SCH (13:51)
[2020-10-25] MEDS ORDERED: LIDOCAINE/EPI 2% 1:200,00 (XYLOCAINE) 20 ML VIAL INJ PRN (14:00)
[2020-10-25] MEDS ORDERED: fentaNYL 2 mcg/ml BUPIVA 0.125 100 ML ONE (14:21)
[2020-10-25] MEDS ORDERED: BUPIVACAINE 0.25% 30 ML (SENSORCAINE) VIAL ONE (15:25)
[2020-10-25] MEDS ORDERED: fentaNYL INJ 100 MCG/2 ML AMP ONE (15:26)
[2020-10-25] MEDS ORDERED: LACTATED RINGERS 1,000 ML IV SCH ×2 (16:00)
[2020-10-25] MEDS ORDERED: METOCLOPRAMIDE INJ 10 MG/2 ML (REGLAN) IV PRN ×2 (16:00)
[2020-10-25] MEDS ORDERED: diphenhydrAMINE 50 MG/ML INJ (BENADRYL) IV PRN ×2 (16:00)
[2020-10-25] MEDS ORDERED: EPIDURAL (fentaNYL 2 MCG/ML BUPIVA 0.125%)100 ML BAG EPI PRN ×2 (16:00)
[2020-10-25] MEDS ORDERED: NALOXONE 0.4 MG/ML 1 ML (NARCAN) VIAL IV PRN ×5 (16:00→21:45)
[2020-10-25] MEDS ORDERED: ONDANSETRON 4 MG/2 ML (SDV) Z0FRAN IV PRN ×2 (16:00)
[2020-10-25] MEDS ORDERED: HYDROcodone/APAP 5 MG/325 MG (LORTAB) TAB PO PRN (21:45)
[2020-10-25] MEDS ORDERED: BENZOCAINE/MENTHOL (DERMOPLAST) 56 ML CAN TP PRN (21:45)
[2020-10-25] MEDS ORDERED: MEASLES,MUMPS,RUBELLA 1 EA INJ SQ ONE (21:45)
[2020-10-25] MEDS ORDERED: TETANUS,DIPTH,PERTUSS P/F (BOOSTRIX) 0.5 ML VIAL IM ONE (21:45)
[2020-10-25] MEDS ORDERED: WITCH HAZEL(TUCKS) 40 EA JAR TOP PRN (21:45)
[2020-10-25] MEDS ORDERED: DIBUCAINE 1% OINTMENT 30 GM TUBE TOP PRN (21:45)
--- NOTE | 2020-10-25 21:50 | OB Labor & Delivery Record ---
L&D History Date of Service Date of Service: Oct 25, 2020 History Expected Date of Delivery: Oct 26, 2020 Gestational Age in Weeks: 39 Hx : 2 Hx Para: 1 Complications Events: Routine care Operative Indications (Cesarea: N/A-Vaginal Delivery Intrapartal Events: None L&D Stage1 Stage One Onset of Labor - Date: Oct 25, 2020 Monitors and Tracing Monitor Mode: Internal Heart Rate: 140 Monitor Accelerations: Uniform Monitor Decelerations: Variable Station: -2 Mcfp Variability: Average (6-10) Short Term Variability: Present Presentation: Vertex Vital Signs VS - Last 72 Hours, by Label 10/24/20 10/24/20 10/24/20 10/24/20 20:00 21:00 22:00 23:00 Temp 36.5 Pulse 90 Resp 18 18 18 18 B/P (MAP) 116/74 (88) 10/25/20 10/25/20 10/25/20 10/25/20 00:00 01:00 02:00 03:00 Temp 36.8 36.8 Pulse 69 71 68 66 Resp 18 18 18 18 B/P (MAP) 118/68 (85) 111/62 (78) 112/65 (81) 112/72 (85) 10/25/20 10/25/20 10/25/20 10/25/20 04:00 05:00 06:00 07:00 Temp 36.5 Pulse 63 58 58 58 Resp 18 18 18 18 B/P (MAP) 112/70 (84) 93/53 (66) 121/59 (79) 117/65 (82) Pulse Ox 100 O2 Delivery Room Air 10/25/20 10/25/20 10/25/20 10/25/20 07:15 08:10 08:15 08:30 Temp 36.7 Pulse 70 74 69 72 Resp 18 18 18 18 B/P (MAP) 102/60 (74) 124/83 (97) 124/73 (90) 126/80 (95) Pulse Ox 99 99 99 98 O2 Delivery Room Air Room Air Room Air Room Air 10/25/20 10/25/20 10/25/20 10/25/20 08:45 09:00 09:15 09:30 Pulse 68 72 69 69 Resp 18 18 18 18 B/P (MAP) 113/71 (85) 132/60 (84) 127/68 (87) 117/62 (80) Pulse Ox 98 O2 Delivery Room Air Room Air Room Air Room Air 10/25/20 10/25/20 10/25/20 10/25/20 09:45 10:00 10:15 10:30 Pulse 73 58 61 67 Resp 18 18 18 18 B/P (MAP) 110/68 (82) 113/58 (76) 112/69 (83) 113/70 (84) O2 Delivery Room Air Room Air Room Air Room Air 10/25/20 10/25/20 10/25/20 10/25/20 10:45 11:00 11:15 11:30 Pulse 64 68 78 68 Resp 18 18 18 18 B/P (MAP) 118/74 (89) 131/76 (94) 117/68 (84) 112/55 (74) O2 Delivery Room Air Room Air Room Air Room Air 10/25/20 10/25/20 10/25/20 10/25/20 11:45 12:00 12:15 12:30 Pulse 66 72 64 68 Resp 18 18 18 18 B/P (MAP) 101/52 (68) 119/68 (85) 122/64 (83) 122/66 (84) O2 Delivery Room Air Room Air Room Air Room Air 10/25/20 10/25/20 10/25/20 10/25/20 12:45 13:00 13:15 13:30 Pulse 68 61 73 64 Resp 18 18 18 18 B/P (MAP) 139/85 (103) 129/76 (93) 134/82 (99) 122/77 (92) O2 Delivery Room Air Room Air Room Air Room Air 10/25/20 10/25/20 10/25/20 10/25/20 13:45 14:00 14:15 14:30 Pulse 74 76 60 64 Resp 18 18 18 18 B/P (MAP) 125/80 (95) 127/83 (98) 126/75 (92) 134/82 (99) O2 Delivery Room Air Room Air Room Air Room Air 10/25/20 10/25/20 10/25/20 10/25/20 14:45 15:00 15:15 15:30 Temp 37.0 Pulse 65 61 67 85 Resp 18 18 18 18 B/P (MAP) 136/86 (103) 135/84 (101) 132/86 (101) 162/92 (115) O2 Delivery Room Air Room Air Room Air Room Air 10/25/20 10/25/20 10/25/20 10/25/20 15:45 15:48 15:51 15:54 Pulse 80 81 89 86 Resp 18 18 18 18 B/P (MAP) 146/79 (101) 142/69 (93) 158/96 (116) 141/90 (107) Pulse Ox 100 99 99 99 O2 Delivery Room Air Room Air Room Air Room Air 10/25/20 10/25/20 10/25/20 10/25/20 15:57 16:00 16:03 16:07 Pulse 80 74 61 58 Resp 18 18 18 18 B/P (MAP) 115/66 (82) 114/59 (77) 99/55 (70) 105/52 (69) Pulse Ox 99 97 100 100 O2 Delivery Room Air Room Air Room Air Room Air 10/25/20 10/25/20 10/25/20 10/25/20 16:25 16:40 16:55 17:10 Temp 36.7 Pulse 69 62 58 58 Resp 18 18 18 18 B/P (MAP) 95/50 (65) 114/64 (81) 110/63 (79) 115/65 (82) Pulse Ox 100 100 100 100 O2 Delivery Room Air Room Air Room Air Non Rebreather O2 Flow Rate 15.00 10/25/20 10/25/20 10/25/20 10/25/20 17:25 17:40 17:55 18:10 Temp 36.3 Pulse 55 82 60 64 Resp 18 18 18 18 B/P (MAP) 122/63 (82) 118/70 (86) 129/71 (90) 116/66 (83) Pulse Ox 100 100 100 100 O2 Delivery Non Rebreather Non Rebreather Non Rebreather Non Rebreather O2 Flow Rate 15.00 15.00 15.00 15.00 10/25/20 10/25/20 10/25/20 10/25/20 18:25 18:40 19:15 19:30 Temp 37.0 Pulse 70 69 70 77 Resp 18 18 18 18 B/P (MAP) 118/67 (84) 123/69 (87) 124/71 (88) 124/56 (78) Pulse Ox 100 100 99 100 O2 Delivery Room Air Room Air Room Air Room Air 10/25/20 10/25/20 10/25/20 10/25/20 19:45 20:00 20:15 20:30 Pulse 80 94 82 77 Resp 18 18 18 18 B/P (MAP) 128/50 (76) 114/56 (75) 102/49 (66) 111/61 (78) Pulse Ox 96 100 100 99 O2 Delivery Room Air Room Air Room Air Room Air Rupture of Membranes Spontaneous Ruture of Membrane: No Amniotic Membrane Rupture Time: 1238 Amniotic Membrane Fluid Desc.: Clear Vaginal Bleeding Description: Normal Show Induction/Anesthesia Epidural Cath Placement - Time: 153 Progress/Notes Patient admitted for IOL electively. Started on PO misoprostol overngiht, and pitocin augmentation started this AM. AROM performed, epidural received. She progressed to complete and + 2 station. L&D Stage2 Stage Two Stage II Date: Oct 25, 2020 Monitors and Tracing Monitor Mode: Internal Heart Rate: 140 Monitor Accelerations: Uniform Monitor Decelerations: Variable Mcfp Variability: Average (6-10) Short Term Variability: Present Position: Right Occiput Anterior Presentation: Vertex Cord Descript/Complications Cord Vessel Description: 3 Vessels Delivery Type Infant Delivery Method: Spontaneous Vaginal Anterior Shoulder: Right Episiotomy/Perineal Laceration Laceraction(s)/Extensions: Yes Episiotomy Description: Vaginal Extension/lac, 1st degree Degree (describe repair) 1st degree vaginal laceration repaired using 3-0 rapide in usual fashion. Condition of Delivery 1 minute Comment: 9 5 minute Comment: 9 Notes Live female weight 6lbs 6 oz Condition of Infant Condition of Infant: Living Exam: No Observed Abnormalities Resuscitation Resuscitation: N/A - Spontaneous Resp L&D Stage3 Stage Three Stage III Date: Oct 25, 2020 Pictocin Pitocin Administration mu/min: 6 Pitocin ml/hr: 6 Pitocin Administration Comment: 193 - INFUSION INCREASED PER ORDER Placenta Delivery Placenta Delivery: Spontaneous Delivery Summary Summary Estimated blood loss (mL): 300 Attending at delivery: Consuelo Raza DO Condition of Delivery Examined: Cervix Examined, Uterus Explored Post Hemorrhage: No Condition of Mother stable Condition of (s) stable CONSUELO RAZA DO Oct 25, 2020 21:50
[2020-10-25] MEDS: OXYTOCIN PRE-MIX DRIP 500 ML IV SCH ×2 (21:52→22:38)
[2020-10-25] MEDS ORDERED: CATHETER FLUSH 10 ML SYR IV SCH (22:00)
[2020-10-26] MEDS: IBUPROFEN 600 MG (MOTRIN) TAB PO SCH ×4 (03:48→18:08)
[2020-10-26 04:55] VITALS: BP 114/57
[2020-10-26 06:04] LABS: BASOPHILS % (AUTO) 0 % (0-10); EOSINOPHILS % (AUTO) 0 % (0-10); HEMATOCRIT 31 % (35-52); HEMOGLOBIN 10.5 g/dL (11.5-16.0); LYMPHOCYTES # (AUTO) 1.7 10^3/uL (1.0-4.0); LYMPHOCYTES % (AUTO) 14 % (12-44); MEAN CORPUSCULAR HEMOGLOBIN 29 pg (25-34); MEAN CORPUSCULAR HGB CONC 34 g/dL (32-36); MEAN CORPUSCULAR VOLUME 87 fL (80-99); MEAN PLATELET VOLUME 11.2 fL (9.0-12.2); MONOCYTES # (AUTO) 0.7 10^3/uL (0.0-1.0); MONOCYTES % (AUTO) 6 % (0-12); NEUTROPHILS # (AUTO) 9.3 10^3/uL (1.8-7.8); NEUTROPHILS % (AUTO) 79 % (42-75); PLATELET COUNT 156 10^3/uL (130-400); WHITE BLOOD COUNT 11.8 10^3/uL (4.3-11.0)
--- NOTE | 2020-10-26 07:28 | Postpartum Progress Note ---
Note Note Day # 1 Subjective: Patient is without complaints. Ambulating, voiding. Tolerating a regular diet without nausea or vomiting. Normal lochia. Pain is well controlled with oral pain medications. Objective: Physical Exam: General - Alert and oriented, no apparent distress Abdomen - Soft, appropriately tender to palpation, non-distended, fundus firm at umbilicus Extremities - no edema, negative Luigi's bilaterally Assessment: PPD 1 NVD Plan: Routine care. Encourage breast feeding. Encourage ambulation. Ferrous sulfate supplementation. Plan for discharge today, or tomorrow pending infant release Vitals - Labs Vital Signs - I&O Vital Signs Date Time Temp Pulse Resp B/P (MAP) Pulse Ox O2 Delivery O2 Flow Rate FiO2 10/26/20 04:55 36.8 79 18 114/57 (76) 98 Room Air 10/25/20 23:35 72 18 116/67 (83) Room Air 10/25/20 23:20 82 18 122/80 (94) Room Air 10/25/20 23:00 75 18 120/57 (78) Room Air 10/25/20 22:45 86 18 124/55 (78) Room Air 10/25/20 22:30 37.0 94 18 117/59 (78) Room Air 10/25/20 22:15 36.8 90 18 118/52 (74) Room Air 10/25/20 22:00 36.6 98 18 129/66 (87) Room Air 10/25/20 21:45 36.4 102 18 114/55 (74) Room Air 10/25/20 21:30 36.6 18 Room Air 10/25/20 21:20 18 Room Air 10/25/20 21:15 18 Room Air 10/25/20 21:00 18 Room Air 10/25/20 20:45 18 Room Air 10/25/20 20:30 77 18 111/61 (78) 99 Room Air 10/25/20 20:15 82 18 102/49 (66) 100 Room Air 10/25/20 20:00 94 18 114/56 (75) 100 Room Air 10/25/20 19:45 80 18 128/50 (76) 96 Room Air 10/25/20 19:30 37.0 77 18 124/56 (78) 100 Room Air 10/25/20 19:15 70 18 124/71 (88) 99 Room Air 10/25/20 18:40 69 18 123/69 (87) 100 Room Air 10/25/20 18:25 70 18 118/67 (84) 100 Room Air 10/25/20 18:10 64 18 116/66 (83) 100 Non Rebreather 15.00 10/25/20 17:55 60 18 129/71 (90) 100 Non Rebreather 15.00 10/25/20 17:40 36.3 82 18 118/70 (86) 100 Non Rebreather 15.00 10/25/20 17:25 55 18 122/63 (82) 100 Non Rebreather 15.00 10/25/20 17:10 36.7 58 18 115/65 (82) 100 Non Rebreather 15.00 10/25/20 16:55 58 18 110/63 (79) 100 Room Air 10/25/20 16:40 62 18 114/64 (81) 100 Room Air 10/25/20 16:25 69 18 95/50 (65) 100 Room Air 10/25/20 16:07 58 18 105/52 (69) 100 Room Air 10/25/20 16:03 61 18 99/55 (70) 100 Room Air 10/25/20 16:00 74 18 114/59 (77) 97 Room Air 10/25/20 15:57 80 18 115/66 (82) 99 Room Air 10/25/20 15:54 86 18 141/90 (107) 99 Room Air 10/25/20 15:51 89 18 158/96 (116) 99 Room Air 10/25/20 15:48 81 18 142/69 (93) 99 Room Air 10/25/20 15:45 80 18 146/79 (101) 100 Room Air 10/25/20 15:30 85 18 162/92 (115) Room Air 10/25/20 15:15 37.0 67 18 132/86 (101) Room Air 10/25/20 15:00 61 18 135/84 (101) Room Air 10/25/20 14:45 65 18 136/86 (103) Room Air 10/25/20 14:30 64 18 134/82 (99) Room Air 10/25/20 14:15 60 18 126/75 (92) Room Air 10/25/20 14:00 76 18 127/83 (98) Room Air 10/25/20 13:45 74 18 125/80 (95) Room Air 10/25/20 13:30 64 18 122/77 (92) Room Air 10/25/20 13:15 73 18 134/82 (99) Room Air 10/25/20 13:00 61 18 129/76 (93) Room Air 10/25/20 12:45 68 18 139/85 (103) Room Air 10/25/20 12:30 68 18 122/66 (84) Room Air 10/25/20 12:15 64 18 122/64 (83) Room Air 10/25/20 12:00 72 18 119/68 (85) Room Air 10/25/20 11:45 66 18 101/52 (68) Room Air 10/25/20 11:30 68 18 112/55 (74) Room Air 10/25/20 11:15 78 18 117/68 (84) Room Air 10/25/20 11:00 68 18 131/76 (94) Room Air 10/25/20 10:45 64 18 118/74 (89) Room Air 10/25/20 10:30 67 18 113/70 (84) Room Air 10/25/20 10:15 61 18 112/69 (83) Room Air 10/25/20 10:00 58 18 113/58 (76) Room Air 10/25/20 09:45 73 18 110/68 (82) Room Air 10/25/20 09:30 69 18 117/62 (80) Room Air 10/25/20 09:15 69 18 127/68 (87) Room Air 10/25/20 09:00 72 18 132/60 (84) Room Air 10/25/20 08:45 68 18 113/71 (85) 98 Room Air 10/25/20 08:30 72 18 126/80 (95) 98 Room Air 10/25/20 08:15 69 18 124/73 (90) 99 Room Air 10/25/20 08:10 74 18 124/83 (97) 99 Room Air I & O 10/26/20 07:00 Intake Total 4900 ml Balance 4900 ml Labs Laboratory Tests 10/26/20 05:25: White Blood Count 11.8H, Red Blood Count 3.61L, Hemoglobin 10.5L, Hematocrit 31L , Mean Corpuscular Volume 87, Mean Corpuscular Hemoglobin 29, Mean Corpuscular Hemoglobin Concent 34, Red Cell Distribution Width 14.2, Platelet Count 156, Mean Platelet Volume 11.2, Immature Granulocyte % (Auto) 1, Neutrophils (%) (Auto) 79H, Lymphocytes (%) (Auto) 14, Monocytes (%) (Auto) 6, Eosinophils (%) (Auto) 0, Basophils (%) (Auto) 0, Neutrophils # (Auto) 9.3H, Lymphocytes # (Auto) 1.7, Monocytes # (Auto) 0.7, Eosinophils # (Auto) 0.0, Basophils # (Auto) 0.0, Immature Granulocyte # (Auto) 0.1 CONSUELO RAZA DO Oct 26, 2020 07:28
[2020-10-26 08:03] VITALS: BP 108/58
[2020-10-26] MEDS: PRENATAL VITAMIN 1 EA TAB PO SCH (09:53)
[2020-10-26] MEDS: DOCUSATE SODIUM 100 MG (COLACE) CAP PO SCH ×2 (09:53→19:59)
[2020-10-26] MEDS: FERROUS SULF 325 MG (IRON) TAB PO SCH (09:53)
--- NOTE | 2020-10-26 10:54 | Anesthesia-Regional Post-Op ---
Regional Patient Condition Mental Status: Alert, Oriented x3 Circulation: Same as Pre-Op Headache: Absent Sensation: Full Recovery Motor Block: Absent Post Op Complications Complications None Follow Up Care/Instructions Patient Instructions None needed. Anesthesia/Patient Condition Patient is doing well, no complaints, stable vital signs, no apparent adverse anesthesia problems. No complications reported per nursing. KIMBERLY RIVERS CRNA Oct 26, 2020 10:54
[2020-10-26 14:37] VITALS: BP 128/63
[2020-10-26 17:41] VITALS: BP 116/59
[2020-10-26 20:00] VITALS: BP 113/58
[2020-10-27] MEDS: IBUPROFEN 600 MG (MOTRIN) TAB PO SCH ×2 (00:42→09:54)
[2020-10-27 02:04] VITALS: BP 99/53
--- NOTE | 2020-10-27 07:29 | Postpartum Progress Note ---
Note Note Day # 2 Subjective: Patient is without complaints. Ambulating, voiding. Tolerating a regular diet without nausea or vomiting. Normal lochia. Pain is well controlled with oral pain medications. Objective: Physical Exam: General - Alert and oriented, no apparent distress Abdomen - Soft, appropriately tender to palpation, non-distended, fundus firm at umbilicus Extremities - no edema, negative Luigi's bilaterally Assessment: PPD 2 NVD Plan: Routine care. Encourage breast feeding. Encourage ambulation. Ferrous sulfate supplementation. Plan for discharge today Vitals - Labs Vital Signs - I&O Vital Signs Date Time Temp Pulse Resp B/P (MAP) Pulse Ox O2 Delivery O2 Flow Rate FiO2 10/27/20 02:04 36.3 69 18 99/53 (68) 98 Room Air 10/26/20 20:00 36.5 73 18 113/58 (76) 98 Room Air 10/26/20 17:41 36.7 78 18 116/59 (78) 98 Room Air 10/26/20 14:37 36.4 82 20 128/63 (84) 99 Room Air 10/26/20 08:03 36.1 77 18 108/58 (75) 99 Room Air CONSUELO RAZA DO Oct 27, 2020 07:29
--- NOTE | 2020-10-27 07:30 | Discharge Inst-Women's Service ---
Discharge Inst-Women's Serv Depart Medication/Instructions New, Converted or Re-Newed RX: RX on Chart Final Diagnosis PPD 2 NVD Problems Reviewed?: Yes Consults/Follow Up Additional Follow Up: Yes Orders/Referrals Dr. Raza in 6 weeks Activity Activity: Activity as Tolerated Driving Instructions: No Driving for 1 Week NO SMOKING: NO SMOKING Nothing Inside Vagina: No Douching, No [place], No Tampons Diet Discharge Diet: No Restrictions Symptoms to Report to : Bleeding Excessive, Pain Increased, Fever Over 101 Degrees F, Vaginal Bleeding Increase, Questions/Concerns For Any Problems or Questions: Contact Your Physician CONSUELO RAZA DO Oct 27, 2020 07:30
[2020-10-27] MEDS ORDERED: DCS100C PO (07:31)
[2020-10-27] MEDS ORDERED: IBUP-844 PO (07:31)
[2020-10-27] MEDS ORDERED: FERR325T24 PO (07:31)
[2020-10-27] MEDS ORDERED: DIBU30OI TOP (07:31)
[2020-10-27] MEDS ORDERED: BENZ78AE5 TP (07:31)
[2020-10-27] MEDS ORDERED: ACHD5005 PO (07:31)
[2020-10-27 09:53] VITALS: BP 126/67
[2020-10-27] MEDS: DOCUSATE SODIUM 100 MG (COLACE) CAP PO SCH (09:54)
[2020-10-27] MEDS: PRENATAL VITAMIN 1 EA TAB PO SCH (09:54)
[2020-10-27] MEDS: FERROUS SULF 325 MG (IRON) TAB PO SCH (09:54)
== END 2020-10-27 10:12 | disposition home or self-care (01) | DRG 807 ==
LOC: LDRP 18:59
PROVIDERS: ADMIT Obstetrics & Gynecology; ATTEND Obstetrics & Gynecology
PROC: 3E0DXGC Introduction of Other Therapeutic Substance into Mouth and Pharynx, External Approach (ICD-10-PCS; 2020-10-24)
PROC: 10E0XZZ Delivery of Products of Conception, External Approach (ICD-10-PCS; principal; 2020-10-25)
PROC: 0HQ9XZZ Repair Perineum Skin, External Approach (ICD-10-PCS; 2020-10-25)
DX: O70.0 First degree perineal laceration during delivery (principal); Z37.0 Single live birth; Z3A.39 39 weeks gestation of pregnancy
CPT/HCPCS: 36415; 81000; 83033; 85025; 86850; 86900; 86901